=== PATIENT | male | born 1935 | race Caucasian/White ===

== ENCOUNTER 2019-09-20 09:09 | Outpatient (CLI) | payer MEDICARE, SELFPAY ==
[2019-09-20 10:01] LABS: Albumin Level 3.8 g/dL (3.4-5.0); Anion Gap 10.9 mmol/L (7-16); Blood Urea Nitrogen 21 mg/dL (7-18); Calcium 10.4 mg/dL (8.5-10.1); Carbon Dioxide 29 mmol/L (21-32); Chloride 103 mmol/L (98-108); Estimated Glomerular Filt Rate > 60; Glucose 111 mg/dL (70-99); Osmolality Calculated 290 mOsm/kg (285-295); Phosphorus 2.8 mg/dL (2.6-4.7); Potassium 4.9 mmol/L (3.5-5.1); Sodium 138 mmol/L (136-145)
[2019-09-23 06:07] LABS: Ionized Calcium 5.9 mg/dL (4.8-5.6)
== END 2019-09-20 09:10 | disposition home or self-care (01) ==
LOC: CHSIMG 09:12
PROVIDERS: PCP Family Medicine; Visit Provider Internal Medicine Endocrinology, Diabetes & Metabolism
DX: E11.9 Type 2 diabetes mellitus without complications (principal); E21.0 Primary hyperparathyroidism
CPT/HCPCS: 36415; 80069; 82306; 82330; 83970

== ENCOUNTER 2019-09-22 08:20 | Outpatient (CLI) | payer MEDICARE, SELFPAY ==
[2019-09-22 09:06] LABS: Creatinine Urine 111.44 mg/dL (40-278)
[2019-09-22 09:07] LABS: Creatinine 24 Hour Urine 1.72 g/24 hr (0.95-2.49); Total Volume 24 Hour Urine 1550 ml
[2019-09-26 20:46] LABS: Total Volume 1550 mL; Urine Calcium 11.7 mg/dL
== END 2019-09-22 08:21 | disposition home or self-care (01) ==
LOC: CHSLAB 08:22
PROVIDERS: PCP Family Medicine; Visit Provider Internal Medicine Endocrinology, Diabetes & Metabolism
DX: E21.0 Primary hyperparathyroidism (principal); E11.9 Type 2 diabetes mellitus without complications
CPT/HCPCS: 81050; 82340; 82570

== ENCOUNTER 2020-02-06 07:36 | Outpatient (CLI) | payer MEDICARE, SELFPAY ==
--- NOTE | ~2020-02-06 | DEXA_ITS ---
Bone Density Report Name: Jamarcus Stark Age: 84 Sex: Male Ethnicity: White Date of : 1935 Indication: screening for osteoporosis; height loss; asthma or emphysema; Referring Provider: Flores Meehan Study: Bone densitometry was performed. Exam Date: February 06, 2020 Accession number: [id number] Bone Density: Region BMD T-score Z-score Classification AP Spine(L2, L3, L4) 1.337 2.0 3.3 Normal Femoral Neck (Left) 0.901 -0.2 1.4 Normal Total Hip (Left) 1.039 0.0 1.2 Normal Femoral Neck (Right) 0.953 0.2 1.8 Normal Total Hip (Right) 1.116 0.6 1.7 Normal Femoral Neck Mean 0.927 0.0 1.6 Normal Total Hip Mean 1.077 0.3 1.4 Normal World Health Organization criteria for BMD impression classify patients as: Normal (T-score at or above -1.0), Osteopenia (T-score between -1.0 and -2.5), or Osteoporosis (T-score at or below -2.5). 10-year Fracture Risk: FRAX not reported because: All T-scores for Spine Total, Hip Total, Femoral Neck at or above -1.0 Clinical Information Provided by Patient: Has used the following medications: Vitamin D Has the following medical conditions: Asthma or Emphysema Patient maximum height was 69.5 No regular weight bearing exercise Drinks caffeinated beverages Impression: The patient has normal bone mass. Discussion: BONE DENSITY IS ABOVE THE MINIMUM DESIRABLE LEVEL AT ALL SKELETAL SITES TESTED. This patient?s bone mineral density is above the minimum desirable level (T-score -1.0 or better) at all sites measured. The patient should follow a healthful lifestyle (good nutrition with adequate calcium and vitamin D, and appropriate weight-bearing exercise). Follow-Up: Consider repeating this study in 5 years or sooner if there is some new clinical indication. Reported by: Dr. Jamarcus Gage on 02/06/2020 8:36:00 AM. Reviewed, dictated and finalized at location [facility]
== END 2020-02-06 07:37 | disposition home or self-care (01) ==
PROVIDERS: PCP Family Medicine; Visit Provider Internal Medicine Endocrinology, Diabetes & Metabolism
DX: E21.0 Primary hyperparathyroidism (principal)
CPT/HCPCS: 77080

== ENCOUNTER 2020-04-09 06:55 | Outpatient (CLI) | payer MEDICARE, SELFPAY ==
[2020-04-09 07:25] LABS: Basophils Absolute Auto 0.05 K/mm3 (0.00-0.10); Basophils Percent Auto 0.8 % (0.0-1.0); Eosinophils Absolute Auto 0.26 K/mm3 (0.02-0.50); Eosinophils Percent Auto 3.9 % (1.0-6.0); Hematocrit 42.5 % (37.0-46.0); Immature Granulocyte Absolute 0.04 K/mm3 (0.00-0.00); Immature Granulocyte Percent A 0.6 % (0.0-0.0); Lymphocytes Absolute Auto 1.22 K/mm3 (1.10-4.50); Lymphocytes Percent Auto 18.4 % (18.0-42.0); Mean Corpuscular HGB Conc 32.9 g/dL (32.0-36.0); Mean Corpuscular Hemoglobin 29.4 pg (27.0-31.0); Mean Corpuscular Volume 89.1 fL (78.0-102.0); Mean Platelet Volume 9.9 fl (8.7-11.0); Monocytes Absolute Auto 0.43 K/mm3 (0.10-0.90); Monocytes Percent Auto 6.5 % (2.0-11.0); Neutrophils Absolute Auto 4.6 K/mm3 (1.7-7.2); Neutrophils Percent Auto 69.8 % (50.0-70.0); Platelet Count Result 179 K/mm3 (150-420); Red Blood Count 4.77 M/mm3 (4.70-6.10); Red Cell Distribution Width 13.3 % (11.6-14.4); White Blood Count 6.6 K/mm3 (4.8-10.8)
[2020-04-09 08:05] LABS: Alanine Aminotransferase 23 U/L (16-63); Albumin Level 3.7 g/dL (3.4-5.0); Alkaline Phosphatase 111 U/L (46-116); Anion Gap 8 mmol/L (8-16); Aspartate Amino Transferase 12 U/L (15-37); Bilirubin,Total 0.6 mg/dL (0.00-1.00); Blood Urea Nitrogen 21 mg/dL (7-18); Calcium 11.2 mg/dL (8.5-10.1); Carbon Dioxide 28 mmol/L (21-32); Chloride 104 mmol/L (98-108); Cholesterol 123 mg/dL (0-200); Estimated Glomerular Filt Rate > 60; Glucose 102 mg/dL (70-99); HDL Direct 61 mg/dL (40-60); LDL Cholesterol Calculated 48 mg/dL (<130); Osmolality Calculated 293 mOsm/kg (285-295); Potassium 5.1 mmol/L (3.5-5.1); Sodium 140 mmol/L (136-145); Thyroid Stimulating Hormone Reflex 0.85 u/IU/mL (0.36-3.74); Total Protein 6.8 g/dL (6.4-8.2); Triglycerides 69 mg/dL (0-150)
[2020-04-09 08:06] LABS: Prostate Specific Antigen 0.1 ng/mL (< OR = 4.0)
[2020-04-10 07:16] LABS: Creatinine Urine 70.56 mg/dL (40-278); MALB Creatinine Ratio 19.4 mg/g (0-30); Microalbumin Urine Random 13.7 mg/L
[2020-04-11 11:36] LABS: Parathyroid Intact 80 pg/mL (14-64)
[2020-04-11 11:55] LABS: Vitamin D 25 Hydroxy 32 ng/mL (30-100)
[2020-04-12 04:20] LABS: Ionized Calcium 6.4 mg/dL (4.8-5.6)
== END 2020-04-09 06:56 | disposition home or self-care (01) ==
LOC: CHSLAB 07:01
PROVIDERS: PCP Family Medicine; Visit Provider Family Medicine
DX: E78.5 Hyperlipidemia, unspecified (principal); I10 Essential (primary) hypertension; Z12.5 Encounter for screening for malignant neoplasm of prostate; Z00.00 Encounter for general adult medical examination without abnormal findings; E55.9 Vitamin D deficiency, unspecified; E11.9 Type 2 diabetes mellitus without complications; E21.0 Primary hyperparathyroidism
CPT/HCPCS: 36415; 80053; 80061; 82043; 82306; 82330; 83036; 83970; 84153; 84443; 85025; G0103

== ENCOUNTER 2020-06-11 09:56 | Outpatient (CLI) | payer MEDICARE, SELFPAY ==
[2020-06-11 12:34] LABS: Anion Gap 5 mmol/L (8-16); Blood Urea Nitrogen 23 mg/dL (9-20); Carbon Dioxide 30 mmol/L (22-30); Chloride 105 mmol/L (98-107); Estimated Glomerular Filt Rate > 60; Glucose 94 mg/dL (75-110); Potassium 5.5 mmol/L (3.4-5.0); Sodium 140 mmol/L (137-145)
[2020-06-11 12:46] LABS: Parathyroid Intact 98.3 pg/mL (7.5-53.5)
[2020-06-14 06:19] LABS: Ionized Calcium 6.1 mg/dL (4.8-5.6)
== END 2020-06-11 09:57 | disposition home or self-care (01) ==
LOC: ANHWCLAB 09:58
PROVIDERS: PCP Family Medicine; Visit Provider Internal Medicine Endocrinology, Diabetes & Metabolism
DX: E11.9 Type 2 diabetes mellitus without complications (principal); E21.0 Primary hyperparathyroidism
CPT/HCPCS: 36415; 80048; 82330; 83970

== ENCOUNTER 2020-06-18 07:02 | Outpatient (CLI) | payer MEDICARE, SELFPAY ==
[2020-06-18 08:41] LABS: Anion Gap 8 mmol/L (8-16); Blood Urea Nitrogen 23 mg/dL (7-18); Calcium 9.3 mg/dL (8.5-10.1); Carbon Dioxide 28 mmol/L (21-32); Chloride 102 mmol/L (98-108); Estimated Glomerular Filt Rate > 60; Glucose 100 mg/dL (70-99); Osmolality Calculated 289 mOsm/kg (285-295); Potassium 4.8 mmol/L (3.5-5.1); Sodium 138 mmol/L (136-145)
== END 2020-06-18 07:03 | disposition home or self-care (01) ==
LOC: CHSLAB 07:04
PROVIDERS: PCP Family Medicine; Visit Provider Internal Medicine Endocrinology, Diabetes & Metabolism
DX: E83.52 Hypercalcemia (principal)
CPT/HCPCS: 36415; 80048

== ENCOUNTER 2021-01-14 06:59 | Outpatient (CLI) | payer MEDICARE, SELFPAY ==
[2021-01-14 08:09] LABS: Anion Gap 8 mmol/L (8-16); Blood Urea Nitrogen 21 mg/dL (7-18); Calcium 9.3 mg/dL (8.5-10.1); Carbon Dioxide 31 mmol/L (21-32); Chloride 101 mmol/L (98-108); Estimated Glomerular Filt Rate > 60; Glucose 85 mg/dL (70-99); Osmolality Calculated 292 mOsm/kg (285-295); Potassium 5.1 mmol/L (3.5-5.1); Sodium 140 mmol/L (136-145)
== END 2021-01-14 07:00 | disposition home or self-care (01) ==
LOC: CHSLAB 07:01
PROVIDERS: PCP Family Medicine; Visit Provider Internal Medicine Endocrinology, Diabetes & Metabolism
DX: E11.9 Type 2 diabetes mellitus without complications (principal); E21.0 Primary hyperparathyroidism
CPT/HCPCS: 36415; 80048

== ENCOUNTER 2021-09-30 08:44 | Outpatient (CLI) | payer MEDICARE, SELFPAY ==
[2021-09-30 21:04] LABS: Alanine Aminotransferase 21 U/L (6-50); Albumin Level 4.4 g/dL (3.5-5.1); Alkaline Phosphatase 111 U/L (38-126); Anion Gap 11 mmol/L (8-16); Aspartate Amino Transferase 33 U/L (17-59); Bilirubin,Total 0.7 mg/dL (0.2-1.3); Blood Urea Nitrogen 22 mg/dL (9-20); Carbon Dioxide 27 mmol/L (22-30); Chloride 98 mmol/L (98-107); Estimated Glomerular Filt Rate > 60; Glucose 78 mg/dL (65-110); Potassium 4.8 mmol/L (3.4-5.0); Sodium 136 mmol/L (137-145)
== END 2021-09-30 08:45 | disposition home or self-care (01) ==
LOC: ANHGOSHLAB 08:46
PROVIDERS: PCP Family Medicine; Visit Provider Family Medicine
DX: E11.9 Type 2 diabetes mellitus without complications (principal); E78.5 Hyperlipidemia, unspecified; I10 Essential (primary) hypertension
CPT/HCPCS: 36415; 80053

== ENCOUNTER 2022-06-04 07:01 | Outpatient (CLI) | payer MEDICARE, SELFPAY ==
[2022-06-04 07:43] LABS: Albumin Level 3.6 g/dL (3.4-5.0); Anion Gap 9 mmol/L (8-16); Blood Urea Nitrogen 31 mg/dL (7-18); Calcium 8.9 mg/dL (8.5-10.1); Carbon Dioxide 29 mmol/L (21-32); Chloride 107 mmol/L (98-108); Estimated Glomerular Filt Rate > 60; Glucose 97 mg/dL (70-99); Osmolality Calculated 306 mOsm/kg (285-295); Phosphorus 3.6 mg/dL (2.6-4.7); Potassium 5.2 mmol/L (3.5-5.1); Sodium 145 mmol/L (136-145)
[2022-06-09 22:34] LABS: Parathyroid Intact 43 pg/mL (14-64)
[2022-06-14 19:45] LABS: Vitamin D 25 Hydroxy 43 ng/mL (30-100)
== END 2022-06-04 07:02 | disposition home or self-care (01) ==
LOC: CHSLAB 07:02
PROVIDERS: PCP Family Medicine; Visit Provider Internal Medicine Endocrinology, Diabetes & Metabolism
DX: R79.89 Other specified abnormal findings of blood chemistry (principal); E83.52 Hypercalcemia; E78.5 Hyperlipidemia, unspecified; E55.9 Vitamin D deficiency, unspecified; E11.9 Type 2 diabetes mellitus without complications
CPT/HCPCS: 36415; 80069; 82306; 83970

== ENCOUNTER 2022-06-22 09:31 | Outpatient (CLI) | payer MEDICARE, SELFPAY ==
[2022-06-22 18:41] LABS: Alanine Aminotransferase 24 U/L (6-50); Albumin Level 4.3 g/dL (3.5-5.1); Alkaline Phosphatase 119 U/L (38-126); Anion Gap 5 mmol/L (8-16); Aspartate Amino Transferase 53 U/L (17-59); Bilirubin,Total 0.7 mg/dL (0.2-1.3); Blood Urea Nitrogen 28 mg/dL (9-20); Calcium 9.1 mg/dL (8.4-10.2); Carbon Dioxide 32 mmol/L (22-30); Chloride 99 mmol/L (98-107); Cholesterol 129 mg/dL (0-200); Estimated Glomerular Filt Rate > 60; Glucose 86 mg/dL (65-110); HDL Direct 55 mg/dL; Potassium 4.5 mmol/L (3.4-5.0); Sodium 136 mmol/L (137-145); Triglycerides 58 mg/dL (<150)
[2022-06-22 18:42] LABS: Basophils Percent Auto 0.6 % (0.2-1.2); Eosinophils Absolute Auto 0.2 K/mm3 (0-0.3); Eosinophils Percent Auto 3.6 % (0-4.4); Hematocrit 42.3 % (42.0-52.0); Hemoglobin 13.4 g/dL (14.0-18.0); Immature Granulocyte Absolute 0.02 K/mm3 (0.00-0.031); Immature Granulocyte Percent A 0.3 % (0-0.5); Lymphocytes Absolute Auto 1.21 K/mm3 (0.9-3.2); Lymphocytes Percent Auto 18.8 % (18.3-44.2); Mean Corpuscular HGB Conc 31.7 g/dl (32-36); Mean Corpuscular Hemoglobin 28.9 pg (26-34); Mean Corpuscular Volume 91.4 fl (80-100); Mean Platelet Volume 10.5 fl (7.4-10.4); Monocytes Absolute Auto 0.6 K/mm3 (0.1-0.6); Monocytes Percent Auto 8.6 % (2.6-8.5); Neutrophils Absolute Auto 4.4 K/mm3 (1.3-6.7); Neutrophils Percent Auto 68.1 % (45.5-73.1); Platelet Count Result 185 k/mm3 (150-375); Red Blood Count 4.63 M/mm3 (4.6-6.20); Red Cell Distribution Width 13.8 % (11.5-14.5); White Blood Count 6.4 K/mm3 (4.5-10.0)
[2022-06-22 18:52] LABS: LDL Cholesterol Direct 47 mg/dL
[2022-06-22 19:10] LABS: Prostate Specific Antigen 0.2 ng/mL (< OR = 4.0)
[2022-06-22 19:17] LABS: Thyroid Stimulating Hormone Reflex 0.992 uIU/mL (0.465-4.68)
== END 2022-06-22 09:32 | disposition home or self-care (01) ==
LOC: ANHGOSHLAB 09:32
PROVIDERS: PCP Family Medicine; Visit Provider Family Medicine
DX: E78.5 Hyperlipidemia, unspecified (principal); I10 Essential (primary) hypertension; E11.9 Type 2 diabetes mellitus without complications; Z12.5 Encounter for screening for malignant neoplasm of prostate; E21.0 Primary hyperparathyroidism; E53.8 Deficiency of other specified B group vitamins
CPT/HCPCS: 36415; 80053; 80061; 82607; 84153; 84443; 85025; G0103

== ENCOUNTER 2022-06-23 08:24 | Outpatient (NON) | payer MEDICARE, SELFPAY ==
[2022-06-23 14:38] LABS: Creatinine Urine 83.7 mg/dL
[2022-06-23 14:42] LABS: MALB Creatinine Ratio 63.1 mg/g (0-30); Microalbumin Urine Random 52.8 mg/L (0-16.7)
== END 2022-06-23 08:25 | disposition home or self-care (01) ==
LOC: ANHGOSHLAB 08:25
PROVIDERS: PCP Family Medicine; Visit Provider Internal Medicine Endocrinology, Diabetes & Metabolism
DX: E11.9 Type 2 diabetes mellitus without complications (principal); E55.9 Vitamin D deficiency, unspecified; E78.5 Hyperlipidemia, unspecified; E21.0 Primary hyperparathyroidism
CPT/HCPCS: 82043

== ENCOUNTER 2022-08-20 02:45 | Day surgery (SDC) | payer MEDICARE, SELFPAY ==
[2022-08-04 14:42] VITALS: BMI 36.5
[2022-08-20 06:47] VITALS: BP 166/99; PULSE 88; RESP 20; TEMP 36.6; O2SAT 94; BMI 36.6
[2022-08-20] MEDS: LACTATED RINGERS 1,000 ML 150 ML IV CONT (07:03)
[2022-08-20 07:05] LABS: Glucose Point of Care 88 mg/dl (65-105)
--- NOTE | 2022-08-20 08:03 | PM.HPGS ---
History of Present Illness History of Present Illness Consent: Risks, benefits, and alternatives have been discussed and questions answered. Patient agrees to proceed with procedure. Chief complaint: hx of colon polyps Narrative: Jamarcus Stark Sr. is a 87 year old male Presents for screening colonoscopy. Patient's current weight appetite and bowel movements are normal. Patient denies abdominal pain. He has had no bleeding. He does have a prior history of colon polyps most recently in 2018. Family history is significant his father may have had colon cancer but patient is uncertain whether this could have really been prostate cancer. Patient presents today for screening colonoscopy. Review of Systems Review of Systems: Review of systems noncontributory. [facility] Past Medical History Medical History (Updated 08/20/22 @ 08:04 by Narendra Montero MD) 1st degree AV block BPH w/o urinary obs/LUTS Cataract Diabetes Dyslipidemia Essential (primary) hypertension Full dentures Hypercalcemia Mild intermittent asthma in adult without complication Primary hyperparathyroidism Type 2 diabetes mellitus without complication, without long-term current use of insulin Ventral hernia without obstruction or gangrene Surgical History Surgical History History of cataract surgery 2018 [place] teeth extracted Family History Family History Other Diabetes mellitus Family history of arthritis Family history of chronic obstructive pulmonary disease Family history of congestive heart failure Family history of hearing loss Family history of mental disorder Family history of obesity Hypertension Malignant neoplasm of prostate Social History Social History Smoking status: Never smoker Second hand tobacco smoke exposure: No Alcohol intake: never Substance use: never Lack of Transportation: No Lack of Food: Never True Current Housing: I Have Housing Concerned About Future Housing: No Difficulty Paying Gas/Electric Bills: No Difficulty Paying for Meds: No Currently Unemployed: No Education: High School Diploma/GED Difficulty w/ Childcare or Family Care: No Occupation/Education: retired Gender identity (if verbalized by the patient): Male Spiritual care concerns: No Meds Home Medications and Allergies Home Medications Medication Instructions Recorded Confirmed Type B-complex with vitamin C (Super B 1 tablet PO DAILY 03/23/19 08/04/22 History Complex-Vitamin C tablet) albuterol sulfate 90 mcg/actuation See Rx Instructions .Route 08/25/21 08/04/22 Rx breath activated powder inhaler .COMPLEX #1 insert (ProAir RespiClick) terazosin 10 mg capsule 10 mg PO DAILY #90 caps 11/27/21 08/04/22 Rx fluticasone propionate 110 2 puff inhalation BID #36 grams 05/22/22 08/04/22 Rx mcg/actuation HFA aerosol inhaler (Flovent HFA) atorvastatin 10 mg tablet 10 mg PO QHS #90 tabs 06/08/22 08/04/22 Rx blood sugar diagnostic (OneTouch #100 ea 06/09/22 06/22/22 Rx Ultra Test strips) cholecalciferol (vitamin D3) 10 800 unit PO DAILY 06/09/22 08/04/22 History mcg (400 unit) capsule cinacalcet 30 mg tablet 30 mg PO DAILY 06/22/22 08/04/22 History metformin 500 mg tablet,extended 500 mg PO BID 06/22/22 08/04/22 History release 24 hr lisinopril 10 mg tablet 10 mg PO DAILY #90 tabs 08/10/22 08/20/22 Rx verapamil 240 mg tablet,extended 480 mg PO DAILY #180 tabs 08/12/22 08/20/22 Rx release Allergies Allergy/AdvReac Type Severity Reaction Status Date / Time No Known Allergies Allergy Verified 08/20/22 06:41 Vital Signs Vital Signs - 24 hr 08/20/22 06:47 Temperature 97.9 F Pulse Rate 88 Respiratory Rate 20 Blood Pressure 166/99 H Pulse Oximetry 94 Oxygen Delivery Room Air Exam Narrative:
--- NOTE | 2022-08-20 08:23 | ECG_ITS ---
Measurements Intervals [place] Rate: 80 P: TX: 0 QRS: 8 QRSD: 90 T: 56 QT: 390 QTc: 450 Interpretive Statements SINUS RHYTHM WITH FIRST DEGREE AV BLOCK FREQUENT ATRIAL PREMATURE COMPLEXES CONSIDER INFERIOR INFARCT, AGE INDETERMINATE ABNORMAL ECG NO PREVIOUS ECG AVAILABLE FOR COMPARISON Electronically Signed On 08-20-2022 9:03:06 CDT by Adama Swartz D.O.
[2022-08-20 08:39] VITALS: BP 91/41; PULSE 75; RESP 22; O2SAT 96
[2022-08-20 08:49] VITALS: BP 99/46; PULSE 76; RESP 20; O2SAT 96
[2022-08-20 08:58] LABS: Glucose Point of Care 79 mg/dl (65-105)
[2022-08-20 08:59] VITALS: BP 125/66; PULSE 74; RESP 20; O2SAT 96
[2022-08-20 09:09] VITALS: BP 144/80; PULSE 75; RESP 20; O2SAT 99
[2022-08-20 09:19] VITALS: BP 148/73; PULSE 72; RESP 20; O2SAT 98
--- NOTE | 2022-08-20 09:24 | PM.CNCAR ---
Assessment and Plan Assessment and plan (1) 1st degree AV block: Code(s): I44.0 - Atrioventricular block, first degree Status: Acute Assessment and Plan: His EKG demonstrates sinus rhythm with 1st degree AVB with PAC's. This AVB has been present on EKG since 2018. No need for any further cardiac workup at this time. I did discuss with him that since he does have some evidence of AV node dysfunction, with time his AVB may progress to a more concerning/problematic block which would require intervention. We discussed signs and symptoms to be aware of and seek medical attention for. At this time I don't have any cardiac recommendations to make. He can follow up with his PCP. History of Present Illness History of Present Illness Consult date/time: 08/20/22 09:24 Requesting physician: Brendan Caballero MD Consult reason: atrial fibrillation Reason For Visit: hx of colon polyps Narrative: Mr. Stark is an 87 year old gentleman with history of hypertension, type 2 diabetes, asthma, and first degree AV block. This is a patient who presented to the hospital this morning for elective up patient colonoscopy. During the procedure, his heart rhythm was noted to be irregular. Cardiology is being asked to see him for concern of atrial fibrillation. His EKG demonstrates sinus rhythm with first-degree AV block with frequent PACs which is not a new finding - he seen by Dr. Vences in the past for concerns of arrhythmia and his EKGs at that time also demonstrated sinus rhythm with 1st degree AVB. Aside from this, he has no known cardiac history. He denies any chest pain, palpitations, shortness of breath, syncope, or presyncope. He does have some left pretibial edema which he states is chronic. Review of Systems Review of Systems: All systems reviewed & are unremarkable except as noted in HPI and below PMFSH Past Medical History Medical History 1st degree AV block BPH w/o urinary obs/LUTS Cataract Diabetes Dyslipidemia Essential (primary) hypertension Full dentures Hypercalcemia Mild intermittent asthma in adult without complication Primary hyperparathyroidism Type 2 diabetes mellitus without complication, without long-term current use of insulin Ventral hernia without obstruction or gangrene Surgical History Surgical History History of cataract surgery 2018 [place] teeth extracted Family History Family History Other Diabetes mellitus Family history of arthritis Family history of chronic obstructive pulmonary disease Family history of congestive heart failure Family history of hearing loss Family history of mental disorder Family history of obesity Hypertension Malignant neoplasm of prostate Social History Social History Smoking status: Never smoker Second hand tobacco smoke exposure: No Alcohol intake: never Substance use: never Lack of Transportation: No Lack of Food: Never True Current Housing: I Have Housing Concerned About Future Housing: No Difficulty Paying Gas/Electric Bills: No Difficulty Paying for Meds: No Currently Unemployed: No Education: High School Diploma/GED Difficulty w/ Childcare or Family Care: No Occupation/Education: retired Gender identity (if verbalized by the patient): Male Spiritual care concerns: No Meds Home Medications and Allergies Home Medications Medication Instructions Recorded Confirmed Type B-complex with vitamin C (Super B 1 tablet PO DAILY 03/23/19 08/04/22 History Complex-Vitamin C tablet) albuterol sulfate 90 mcg/actuation See Rx Instructions .Route 08/25/21 08/04/22 Rx breath activated powder inhaler .COMPLEX #1 insert (ProAir RespiClick) terazosin 10 mg capsule 10 mg PO DAILY
--- NOTE | 2022-08-20 09:27 | SUR.PHASEII ---
0839: CARDIOLOGY CONSULT OBTAINED PER ANESTHESIA REGARDING HEART ARRHYTHMIA. PT AND SON MADE AWARE. 0913: BHARAT PARTIDA FROM CARDIOLOGY HERE TO SEE PT 0918: OBTAINING REPEAT EKG PER BHARAT PARTIDA REQUEST 0922: DR CONRAD AND BHARAT PARTIDA CARDIOLOGY SPEAKING 0927: MARK PARTIDA, GIVEN REPEAT EKG RESULTS 0928: BHARAT PARTIDA, CARDIOLOGY SEEING PT AND PT'S SON AT BEDSIDE 0933: PT AND PT'S SON GIVEN CARDIOLOGY CONTACT PHONE NUMBERS AND EDUCATED TO FOLLOW UP NEEDED
== END 2022-08-20 09:40 | disposition home or self-care (01) ==
PROVIDERS: PCP Family Medicine; Visit Provider Internal Medicine Gastroenterology
PROC: 0DJD8ZZ Inspection of Lower Intestinal Tract, Via Natural or Artificial Opening Endoscopic (ICD-10-PCS; CPT 45378; principal; 2022-08-20 08:00)
DX: Z12.11 Encounter for screening for malignant neoplasm of colon (principal); D12.5 Benign neoplasm of sigmoid colon; K63.5 Polyp of colon; K64.8 Other hemorrhoids; I44.0 Atrioventricular block, first degree; I10 Essential (primary) hypertension; E11.9 Type 2 diabetes mellitus without complications; I49.1 Atrial premature depolarization; N40.0 Benign prostatic hyperplasia without lower urinary tract symptoms; E78.5 Hyperlipidemia, unspecified; J45.20 Mild intermittent asthma, uncomplicated; E21.0 Primary hyperparathyroidism; Z79.51 Long term (current) use of inhaled steroids; Z79.84 Long term (current) use of oral hypoglycemic drugs
CPT/HCPCS: 45385; 82948; 88305; 93005; J2704; J7120

== ENCOUNTER 2022-12-09 06:57 | Outpatient (CLI) | payer MEDICARE, SELFPAY ==
[2022-12-09 07:37] LABS: Creatinine Urine 91.67 mg/dL (40-278); MALB Creatinine Ratio 23.6 mg/g (0-30); Microalbumin Urine Random 21.7 mg/L
[2022-12-09 08:18] LABS: Albumin Level 3.5 g/dL (3.4-5.0); Anion Gap 10 mmol/L (8-16); Blood Urea Nitrogen 29 mg/dL (7-18); Calcium 9.2 mg/dL (8.5-10.1); Carbon Dioxide 29 mmol/L (21-32); Chloride 105 mmol/L (98-108); Cholesterol 129 mg/dL (0-200); Estimated Glomerular Filt Rate > 60; Glucose 101 mg/dL (70-99); HDL Direct 63 mg/dL (40-60); LDL Cholesterol Calculated 55 mg/dL (<130); Osmolality Calculated 303 mOsm/kg (285-295); Phosphorus 3.5 mg/dL (2.6-4.7); Potassium 4.9 mmol/L (3.5-5.1); Sodium 144 mmol/L (136-145); Triglycerides 56 mg/dL (0-150)
[2022-12-11 11:35] LABS: Vitamin D 25 Hydroxy 39 ng/mL (30-100)
[2022-12-12 11:58] LABS: Parathyroid Intact 32 pg/mL (14-64)
== END 2022-12-09 06:58 | disposition home or self-care (01) ==
LOC: CHSLAB 06:59
PROVIDERS: PCP Family Medicine; Visit Provider Internal Medicine Endocrinology, Diabetes & Metabolism
DX: E78.5 Hyperlipidemia, unspecified (principal); E55.9 Vitamin D deficiency, unspecified; E21.0 Primary hyperparathyroidism; E11.9 Type 2 diabetes mellitus without complications
CPT/HCPCS: 36415; 80061; 80069; 82043; 82306; 83970

== ENCOUNTER 2023-05-24 07:02 | Outpatient (CLI) | payer MEDICARE, SELFPAY ==
[2023-05-24 07:33] LABS: Basophils Absolute Auto 0.04 K/mm3 (0.00-0.10); Basophils Percent Auto 0.6 % (0.0-1.0); Eosinophils Absolute Auto 0.28 K/mm3 (0.02-0.50); Eosinophils Percent Auto 4.4 % (1.0-6.0); Hematocrit 40.4 % (37.0-46.0); Hemoglobin 13.2 g/dL (12.4-15.3); Immature Granulocyte Absolute 0.03 K/mm3 (0.00-0.00); Immature Granulocyte Percent A 0.5 % (0.0-0.0); Lymphocytes Absolute Auto 1.28 K/mm3 (1.10-4.50); Lymphocytes Percent Auto 19.9 % (18.0-42.0); Mean Corpuscular HGB Conc 32.7 g/dL (32-36); Mean Corpuscular Hemoglobin 29.2 pg (27.0-31.0); Mean Corpuscular Volume 89.4 fL (78.0-102.0); Mean Platelet Volume 10.2 fl (8.7-11.0); Monocytes Percent Auto 7.8 % (2.0-11.0); Neutrophils Percent Auto 66.8 % (50.0-70.0); Platelet Count Result 176 K/mm3 (150-420); Red Blood Count 4.52 M/mm3 (4.70-6.10); Red Cell Distribution Width 13.3 % (11.6-14.4); White Blood Count 6.4 K/mm3 (4.8-10.8)
[2023-05-24 08:42] LABS: Alanine Aminotransferase 26 U/L (16-63); Albumin Level 3.6 g/dL (3.4-5.0); Alkaline Phosphatase 121 U/L (46-116); Anion Gap 7 mmol/L (4-12); Aspartate Amino Transferase 18 U/L (15-37); Bilirubin,Total 0.8 mg/dL (0.00-1.00); Blood Urea Nitrogen 24 mg/dL (7-18); Calcium 8.9 mg/dL (8.5-10.1); Carbon Dioxide 31 mmol/L (21-32); Chloride 103 mmol/L (98-108); Cholesterol 134 mg/dL (0-200); Estimated Glomerular Filt Rate > 60; Glucose 96 mg/dL (70-99); HDL Direct 74 mg/dL (40-60); LDL Cholesterol Calculated 49 mg/dL (<130); Osmolality Calculated 296 mOsm/kg (285-295); Potassium 4.9 mmol/L (3.5-5.1); Sodium 141 mmol/L (136-145); Total Protein 6.5 g/dL (6.4-8.2); Triglycerides 53 mg/dL (0-150); Vitamin B12 890 pg/mL (193-986)
[2023-05-24 08:43] LABS: Thyroid Stimulating Hormone Reflex 0.96 u/IU/mL (0.36-3.74)
[2023-05-24 08:44] LABS: Phosphorus 3.1 mg/dL (2.6-4.7)
[2023-05-24 08:48] LABS: Prostate Specific Antigen < 0.1 ng/mL (< OR = 4.0)
[2023-05-27 00:09] LABS: Vitamin D 25 Hydroxy 39 ng/mL (30-100)
[2023-05-27 19:25] LABS: Parathyroid Intact 43 pg/mL (14-64)
== END 2023-05-24 07:03 | disposition home or self-care (01) ==
LOC: CHSLAB 07:04
PROVIDERS: PCP Family Medicine; Visit Provider Internal Medicine Endocrinology, Diabetes & Metabolism
DX: R79.89 Other specified abnormal findings of blood chemistry (principal); Z12.5 Encounter for screening for malignant neoplasm of prostate; E55.9 Vitamin D deficiency, unspecified; E53.8 Deficiency of other specified B group vitamins; E78.5 Hyperlipidemia, unspecified; I10 Essential (primary) hypertension; E21.0 Primary hyperparathyroidism
CPT/HCPCS: 36415; 80053; 80061; 82306; 82607; 83970; 84100; 84153; 84443; 85025; G0103

== ENCOUNTER 2023-11-22 06:56 | Outpatient (CLI) | payer MEDICARE, SELFPAY ==
[2023-11-22 08:16] LABS: Anion Gap 7 mmol/L (4-12); Blood Urea Nitrogen 19 mg/dL (7-18); Calcium 8.4 mg/dL (8.5-10.1); Carbon Dioxide 30 mmol/L (21-32); Chloride 102 mmol/L (98-108); Estimated Glomerular Filt Rate > 60; Glucose 96 mg/dL (70-99); Osmolality Calculated 290 mOsm/kg (285-295); Potassium 4.5 mmol/L (3.5-5.1); Sodium 139 mmol/L (136-145)
[2023-11-22 09:10] LABS: Creatinine Urine 106.54 mg/dL (40-278)
[2023-11-23 11:43] LABS: Vitamin D 25 Hydroxy 42 ng/mL (30-100)
[2023-11-23 21:38] LABS: Parathyroid Intact 51 pg/mL (16-77)
== END 2023-11-22 06:57 | disposition home or self-care (01) ==
LOC: CHSLAB 06:57
PROVIDERS: PCP Family Medicine; Visit Provider Internal Medicine Endocrinology, Diabetes & Metabolism
DX: E83.52 Hypercalcemia (principal); E55.9 Vitamin D deficiency, unspecified; E11.9 Type 2 diabetes mellitus without complications
CPT/HCPCS: 36415; 80048; 82043; 82306; 83970

== ENCOUNTER 2024-01-10 07:03 | Outpatient (CLI) | payer MEDICARE, SELFPAY ==
[2024-01-10 10:04] LABS: Anion Gap 8 mmol/L (4-12); Blood Urea Nitrogen 26 mg/dL (7-18); Calcium 9.1 mg/dL (8.5-10.1); Carbon Dioxide 28 mmol/L (21-32); Chloride 104 mmol/L (98-108); Estimated Glomerular Filt Rate > 60; Glucose 105 mg/dL (70-99); Osmolality Calculated 294 mOsm/kg (285-295); Potassium 5.2 mmol/L (3.5-5.1); Sodium 140 mmol/L (136-145)
== END 2024-01-10 07:04 | disposition home or self-care (01) ==
LOC: CHSLAB 07:04
PROVIDERS: PCP Family Medicine; Visit Provider Internal Medicine Endocrinology, Diabetes & Metabolism
DX: E21.0 Primary hyperparathyroidism (principal)
CPT/HCPCS: 36415; 80048

== ENCOUNTER 2024-01-25 07:05 | Outpatient (CLI) | payer MEDICARE, SELFPAY ==
[2024-01-25 08:44] LABS: Anion Gap 8 mmol/L (4-12); Blood Urea Nitrogen 26 mg/dL (7-18); Calcium 9.5 mg/dL (8.5-10.1); Carbon Dioxide 28 mmol/L (21-32); Chloride 103 mmol/L (98-108); Estimated Glomerular Filt Rate > 60; Glucose 96 mg/dL (70-99); Osmolality Calculated 292 mOsm/kg (285-295); Potassium 5.2 mmol/L (3.5-5.1); Sodium 139 mmol/L (136-145)
== END 2024-01-25 07:06 | disposition home or self-care (01) ==
PROVIDERS: PCP Family Medicine; Visit Provider Internal Medicine Endocrinology, Diabetes & Metabolism
DX: E87.5 Hyperkalemia (principal)
CPT/HCPCS: 36415; 80048

== ENCOUNTER 2024-02-28 07:05 | Outpatient (CLI) | payer MEDICARE, SELFPAY ==
[2024-02-28 08:14] LABS: Albumin Level 3.5 g/dL (3.4-5.0); Anion Gap 11 mmol/L (4-12); Blood Urea Nitrogen 35 mg/dL (7-18); Calcium 9.3 mg/dL (8.5-10.1); Carbon Dioxide 26 mmol/L (21-32); Chloride 103 mmol/L (98-108); Estimated Glomerular Filt Rate 58; Glucose 109 mg/dL (70-99); Osmolality Calculated 299 mOsm/kg (285-295); Phosphorus 3.3 mg/dL (2.6-4.7); Potassium 4.9 mmol/L (3.5-5.1); Sodium 140 mmol/L (136-145)
== END 2024-02-28 07:06 | disposition home or self-care (01) ==
LOC: CHSLAB 07:06
PROVIDERS: PCP Family Medicine; Visit Provider Internal Medicine Endocrinology, Diabetes & Metabolism
DX: E21.0 Primary hyperparathyroidism (principal); E83.52 Hypercalcemia
CPT/HCPCS: 36415; 80069

== ENCOUNTER 2024-10-12 06:54 | Outpatient (CLI) | payer MEDICARE, SELFPAY ==
[2024-10-12 07:13] LABS: Hematocrit 39.2 % (37.0-46.0); Hemoglobin 12.5 g/dL (12.4-15.3); Immature Granulocyte Percent A 0.6 % (0.0-0.0); Lymphocytes Absolute Auto 0.58 K/mm3 (1.10-4.50); Mean Corpuscular HGB Conc 31.9 g/dL (32-36); Mean Corpuscular Hemoglobin 29.0 pg (27.0-31.0); Mean Corpuscular Volume 91.0 fL (78.0-102.0); Nucleated Red Blood Cells Absolute Auto 0.00 K/mm3 (0.00-0.00); Nucleated Red Blood Cells Perc 0.0 % (0-0.0); Platelet Count Result 165 K/mm3 (150-420); Red Blood Count 4.31 M/mm3 (4.70-6.10); White Blood Count 7.1 K/mm3 (4.8-10.8)
[2024-10-12 07:54] LABS: Magnesium 1.4 mg/dL (1.6-2.3)
[2024-10-12 07:54] LABS: Alanine Aminotransferase 18 U/L (6-50); Albumin Level 4.0 g/dL (3.5-5.1); Alkaline Phosphatase 125 U/L (38-126); Anion Gap 10 mmol/L (4-12); Aspartate Amino Transferase 25 U/L (17-59); Bilirubin,Total 1.1 mg/dL (0.2-1.3); Blood Urea Nitrogen 27 mg/dL (9-20); Calcium 9.5 mg/dL (8.4-10.2); Carbon Dioxide 27 mmol/L (22-30); Chloride 104 mmol/L (98-107); Cholesterol 129 mg/dL (0-200); Estimated Glomerular Filt Rate 56; Glucose 117 mg/dL (65-110); HDL Direct 71 mg/dL; Osmolality Calculated 298 mOsm/kg (285-295); Potassium 5.0 mmol/L (3.4-5.0); Sodium 141 mmol/L (137-145); Total Protein 6.5 g/dL (6.3-8.2); Triglycerides 66 mg/dL (<150)
[2024-10-12 08:25] LABS: Thyroid Stimulating Hormone Reflex 0.725 uIU/mL (0.465-4.68)
[2024-10-12 08:26] LABS: Prostate Specific Antigen 0.2 ng/mL (< OR = 4.0)
[2024-10-12 08:43] LABS: Vitamin B12 886.0 pg/mL (239-931)
[2024-10-12 13:10] LABS: MALB Creatinine Ratio 20.4 mg/g (0-30)
== END 2024-10-12 06:55 | disposition home or self-care (01) ==
LOC: CHSLAB 06:55
PROVIDERS: Internal Medicine Endocrinology, Diabetes & Metabolism; PCP Family Medicine; Visit Provider Nurse Practitioner Family
DX: E78.5 Hyperlipidemia, unspecified (principal); E11.9 Type 2 diabetes mellitus without complications; E21.0 Primary hyperparathyroidism; E87.5 Hyperkalemia; E55.9 Vitamin D deficiency, unspecified; I10 Essential (primary) hypertension; N40.0 Benign prostatic hyperplasia without lower urinary tract symptoms; Z12.5 Encounter for screening for malignant neoplasm of prostate
CPT/HCPCS: 36415; 80053; 80061; 82043; 82306; 82330; 82607; 83735; 83970; 84153; 84443; 85025; G0103

== ENCOUNTER 2024-10-24 07:02 | Outpatient (CLI) | payer MEDICARE, SELFPAY ==
[2024-10-24 07:15] LABS: Hematocrit 39.7 % (37.0-46.0); Hemoglobin 12.6 g/dL (12.4-15.3); Immature Granulocyte Percent A 0.5 % (0.0-0.0); Lymphocytes Absolute Auto 1.38 K/mm3 (1.10-4.50); Mean Corpuscular HGB Conc 31.7 g/dL (32-36); Mean Corpuscular Hemoglobin 28.9 pg (27.0-31.0); Mean Corpuscular Volume 91.1 fL (78.0-102.0); Nucleated Red Blood Cells Absolute Auto 0.00 K/mm3 (0.00-0.00); Nucleated Red Blood Cells Perc 0.0 % (0-0.0); Platelet Count Result 191 K/mm3 (150-420); Red Blood Count 4.36 M/mm3 (4.70-6.10); White Blood Count 7.4 K/mm3 (4.8-10.8)
[2024-10-24 08:01] LABS: Magnesium 1.7 mg/dL (1.6-2.3)
== END 2024-10-24 07:03 | disposition home or self-care (01) ==
LOC: CHSLAB 07:02
PROVIDERS: PCP Family Medicine; Visit Provider Nurse Practitioner Family
DX: E83.42 Hypomagnesemia (principal); D72.810 Lymphocytopenia
CPT/HCPCS: 36415; 83735; 85025